=== PATIENT | female | born 1975 | race Two or more races ===

== ENCOUNTER 2024-11-04 07:57 | Emergency (ER) | payer OTHER ==
[~2024-11-04] VITALS: Ht 167.6 cm; Wt 75.7 kg
[2024-11-04] MEDS ORDERED: AVAPRO75 MG PO (08:02)
[2024-11-04] MEDS ORDERED: 0.9 % SODIUM CHLORIDE 1,000 ML IV STA (08:24)
[2024-11-04 09:06] LABS: HEMATOCRIT 39.4 % (36.0-45.00); HEMOGLOBIN 13.5 g/dL (12.0-15.00); MEAN CELL VOLUME 87.1 fL (80.00-100.00); MEAN CORPUSCULAR HEMOGLOBIN 29.9 pg (27.00-32.0); MEAN CORPUSCULAR HGB CONC 34.4 g/dl (32.0-36.0); PLATELET COUNT 321 K/uL (150-450); RED BLOOD COUNT 4.52 M/uL (4.00-6.00); RED CELL DISTRIBUTION WIDTH 13.7 % (11.5-14.5)
[2024-11-04 09:09] LABS: PH,URINE 5.5 (5.0-8.0); URINE APPEARANCE Clear; URINE BILIRRUBIN Negative (NEGATIVE); URINE BLOOD Moderate; URINE COLOR Yellow; URINE GLUCOSE Negative (NEGATIVE); URINE KETONE Negative (NEGATIVE); URINE LEUKOCYTE Negative; URINE NITRATE Negative; URINE PROTEIN Negative (NEGATIVE); URINE UROBILINOGEN 0.2 E.U./dl
[2024-11-04 09:15] LABS: URINE BACTERIA 1285.1 uL (0.0-1933); URINE EPITHELIAL CELLS 95.7 uL (0.0-38.8); URINE RBC 42.7 uL (0.0-20.8); URINE WBC 4.9 uL (0.0-23.2)
[2024-11-04 10:13] LABS: CALCIUM 8.3 mg/dL (8.5-10.1); CREATININE SERUM 0.71 mg/dL (0.55-1.02); GFR 88.24; POTASSIUM 3.6 mEq/L (3.5-5.1)
[2024-11-04] MEDS ORDERED: MEPERIDINE HCL/PF 25 MG/ML VIAL IV ONE (13:00)
[2024-11-04] MEDS ORDERED: MEPERIDINE HCL/PF 50 MG/ML VIAL IM ONE (15:15)
== END 2024-11-04 15:41 | disposition home or self-care (01) ==
LOC: ER 07:59
PROVIDERS: Emergency Medicine
DX: K52.89 Other specified noninfective gastroenteritis and colitis (principal); R10.9 Unspecified abdominal pain; I10 Essential (primary) hypertension; Z91.013 Allergy to seafood